=== PATIENT | female | born 2005 | race Two or more races ===

== ENCOUNTER 2024-02-15 22:57 | Emergency (ER) | payer SELFPAY ==
[2024-02-15 23:21] LABS: APPEARANCE,URINE CLEAR; BILIRUBIN,URINE NEGATIVE (NEGATIVE); COLOR,URINE YELLOW; GLUCOSE,URINE NEGATIVE (NEGATIVE); KETONES,URINE NEGATIVE (NEGATIVE); LEUKOCYTE ESTERASE,URINE NEGATIVE (NEGATIVE); NITRITE,URINE NEGATIVE (NEGATIVE); OCCULT BLOOD,URINE MODERATE (NEGATIVE); PH,URINE 6.5 (5.0-8.0); PROTEIN,URINE NEGATIVE (NEGATIVE); UROBILINOGEN,URINE 0.2 EU/dL (<2.0)
[2024-02-15 23:28] LABS: BACTERIA,URINE RARE (NEGATIVE); EPITHELIAL CELLS,URINE RARE (NONE-FEW); WBC,URINE 0-1 (0-5/HPF)
[2024-02-15] MEDS: Phenazopyridine 200 MG Tab PO ONE (23:56)
[2024-02-15] MEDS: Ibuprofen 600 MG Tab PO ONE (23:56)
[2024-02-15] MEDS: Acetaminophen 325 MG Tab PO ONE (23:56)
== END 2024-02-16 00:08 | disposition home or self-care (01) ==
LOC: MW.ED 22:57
DX: R31.9 Hematuria, unspecified (principal)
CPT/HCPCS: 81001; 81025; 99284; A9270

== ENCOUNTER 2024-02-18 17:40 | Emergency (ER) | payer SELFPAY ==
[2024-02-18 19:07] LABS: BILIRUBIN,URINE NEGATIVE (NEGATIVE); COLOR,URINE YELLOW; GLUCOSE,URINE NEGATIVE (NEGATIVE); KETONES,URINE NEGATIVE (NEGATIVE); LEUKOCYTE ESTERASE,URINE MODERATE (NEGATIVE); NITRITE,URINE NEGATIVE (NEGATIVE); OCCULT BLOOD,URINE LARGE (NEGATIVE); PROTEIN,URINE NEGATIVE (NEGATIVE); UROBILINOGEN,URINE 0.2 EU/dL (<2.0)
[2024-02-18 19:10] LABS: APPEARANCE,URINE HAZY
[2024-02-18 19:35] LABS: BACTERIA,URINE FEW (NEGATIVE); MUCUS,URINE NOT SEEN (NONE-MOD); SQUAMOUS EPITHELIAL CELLS,UR FEW
[2024-02-18] MEDS: Acetaminophen/HYDROcodone 325-10 MG Tab PO ONE (19:41)
[2024-02-18] MEDS: Cephalexin 500 MG Cap PO ONE (19:41)
== END 2024-02-18 20:04 | disposition home or self-care (01) ==
LOC: MW.ED 17:40
DX: N12 Tubulo-interstitial nephritis, not specified as acute or chronic (principal); Z75.8 Other problems related to medical facilities and other health care
CPT/HCPCS: 81001; 99284; A9270